=== PATIENT | female | born 1935 | race Caucasian/White ===

== ENCOUNTER 2016-09-08 15:48 | Emergency (ER) | payer MEDICARE, OTHER ==
[~2016-09-08] VITALS: Ht 160 cm; Wt 68.5 kg
== END 2016-09-08 17:35 | disposition short-term general hospital (02) ==
LOC: ER 15:48
DX: R41.0 Disorientation, unspecified (principal); R51 Headache; J06.9 Acute upper respiratory infection, unspecified; Z90.710 Acquired absence of both cervix and uterus; Z98.890 Other specified postprocedural states; Z79.899 Other long term (current) drug therapy; Z88.1 Allergy status to other antibiotic agents; Z88.8 Allergy status to other drugs, medicaments and biological substances; E03.9 Hypothyroidism, unspecified; E78.5 Hyperlipidemia, unspecified